=== PATIENT | male | born 1960 | race Two or more races ===

== ENCOUNTER 2016-08-29 08:01 | Emergency (ER) | payer OTHER ==
[2016-08-29 08:08] VITALS: RESP 16; TEMP 97.7
--- NOTE | 2016-08-29 08:41 | EDPHY ---
H & P Time Seen by Provider: 08/29/16 08:09 HPI/ROS: Chief complaint. Left wrist injury HPI. 56-year-old male in presents with left wrist injury. He was coming down a ladder lost his balance. He fell landing on outstretched left arm. Complains of pain to left wrist. He says he feels that he could hear the bones snap. History of carpal tunnel surgery 8 years ago to the left wrist. Hurts to move the left wrist. No other injuries. Patient is right ROS Constitutional. no fever/chills, no weakness Eyes. no problems with vision ENT. no sore throat, no nasal drainage Cardiovascular. no chest pain Respiratory. no shortness of breath, no cough Abdominal. no abdominal pain, no nausea/vomiting, no diarrhea . no problems urinating MS. Left wrist injury Skin. no rash Lymph. no swollen glands Neuro. no headache, no dizziness, no difficulty walking or with speech Past Medical/Surgical History: Healthy Social History: , nonsmoker, no alcohol Smoking Status: Former smoker Physical Exam: General Appearance: Alert well-developed male moderate distress vital signs are stable Eyes: Pupils equal and round no pallor or injection. ENT, Mouth: Mucous membranes are moist. Respiratory: There are no retractions, lungs are clear to auscultation. Cardiovascular: Regular rate and rhythm. Gastrointestinal: Abdomen is soft and nontender, no masses, bowel sounds normal. Neurological: Awake and alert, sensory and motor exams grossly normal. Skin: Warm and dry, no rashes. Musculoskeletal: Neck is supple nontender. Extremities tenderness to the left wrist without significant swelling or deformity. Increased pain with movement. Distal motor vascular sensitivity is intact. No elbow or shoulder discomfort Psychiatric: Patient is oriented X 3, there is no agitation. Constitutional: Initial Vital Signs Temperature (C) 36.5 C 08/29/16 08:06 Heart Rate 82 08/29/16 08:06 Respiratory Rate 16 08/29/16 08:06 Blood Pressure 163/91 H 08/29/16 08:06 O2 Sat (%) 96 08/29/16 08:06 O2 Delivery Mode Room Air Allergies/Adverse Reactions: No Known Allergies Allergy (Unverified 08/29/16 08:05) Home Medications: Medication Instructions Recorded Hydrocodone/APAP 5/325 [Anson 1 each PO Q4-6PRN PRN #14 tab 08/29/16 5/325 (*)] Medical Decision Making - Diagnostics Imaging Results: Imaging Impressions Wrist X-Ray 08/29/16 08:41 Impression: Slightly impacted distal radial metaphyseal fracture. X-ray left wrist shows slightly impacted but not displaced distal radius fracture Procedures: Ibuprofen 600 mg orally ED Course/Re-evaluation: Patient is placed in a sugar-tong splint left wrist. Post splint application shows good anatomic position and distal motor vascular sensitivity to be intact. Patient is placed in a sling Re-evaluation 930 patient is stable. He and I discussed imaging study results, treatment plan, criteria for return importance of follow-up and further evaluation. He expresses understanding and agreement Differential Diagnosis: I considered fracture, dislocation, sprain - Data Points Medications Given: Discontinued Medications Ibuprofen (Motrin) 600 mg PO EDNOW ONE Stop: 08/29/16 08:45 Last Admin: 08/29/16 08:47 Dose: 600 mg Departure - Departure Disposition: Home, Routine, Self-Care Clinical Impression: Distal radius fracture, left Qualifiers: Encounter type: initial encounter Fracture type: closed Fracture morphology: other fracture Qualified Code(s): S52.592A - Other fractures of lower end of left radius, initial encounter for closed fracture Condition: Good Instructions: Wrist Fracture in Adults (ED) Additional Instructions: Splint and sling until see orthopedist. Ice next 48 hours to the wrist right on top of the splint. Tylenol or hydrocodone as needed for pain. Return for worsening symptoms. 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 Please call him today to arrange follow-up appointment in the next 5-7 days. Referrals: ANTOINE,ANDREW [Other] - As per Instructions Kentrell Kay MD [Medical Doctor] - 5-7 days, call for appt. Prescriptions: Hydrocodone/APAP 5/325 [Anson 5/325 (*)] 1 each PO Q4-6PRN PRN #14 tab PRN Reason: Pain, Moderate
[2016-08-29] MEDS ORDERED: IBUPROFEN 600 MG TAB PO ONE ×2 (08:44→08:45)
[2016-08-29 10:21] VITALS: BP 157/102; PULSE 72; O2SAT 95
== END 2016-08-29 10:21 | disposition home or self-care (01) ==
DX: S52.592A Other fractures of lower end of left radius, initial encounter for closed fracture (principal); Z87.891 Personal history of nicotine dependence; W11.XXXA Fall on and from ladder, initial encounter; Y92.69 Other specified industrial and construction area as the place of occurrence of the external cause; Y99.0 Civilian activity done for income or pay; Y93.89 Activity, other specified
CPT/HCPCS: A4565